=== PATIENT | male | born 1935 | race Hispanic/Latino ===

== ENCOUNTER 2017-12-26 06:00 | Observation (INO) | payer MEDICARE ==
[2017-12-23 12:16] VITALS: BP 113/55
[2017-12-23 12:55] LABS: BASOPHILS % (AUTO) 0.5 % (0.0-5.0); EOSINOPHILS % (AUTO) 0.8 % (0.0-8.0); HEMATOCRIT 30.9 % (42-54); LYMPHOCYTES % (AUTO) 12.4 % (21.0-51.0); MEAN CORPUSCULAR HEMOGLOBIN 34.1 pg (27.0-33.0); MEAN CORPUSCULAR HGB CONC 34.4 g/dL (32.0-36.0); MONOCYTES % (AUTO) 5.8 % (3.0-13.0); NEUTROPHILS % (AUTO) 80.5 % (40.0-77.0); PLATELET COUNT (AUTO) 228 K/uL (130-400); RED BLOOD CELL COUNT(AUTO) 3.12 MIL/uL (4.50-6.20); RED CELL DISTRIBUTION WIDTH 14.9 % (11.0-15.5); WHITE BLOOD COUNT (AUTO) 6.6 K/uL (4.8-10.8)
[2017-12-23 13:07] LABS: POTASSIUM 4.5 mmol/L (3.5-5.1)
[2017-12-23 13:08] LABS: INR 0.93 (0.85-1.15); PARTIAL THROMBOPLASTIN TIME 32.7 SEC (26.3-35.5); PROTHROMBIN TIME 9.8 SEC (9.6-11.6)
[2017-12-23 13:38] LABS: CREATININE 9.6 mg/dL (0.5-1.5)
[~2017-12-26] VITALS: Ht 182.9 cm; Wt 67.6 kg
[2017-12-26] VITALS (12 sets, daily range): BP systolic 91–105; BP diastolic 40–50
[~2017-12-26 06:00] MED LIST: ACET1TAB25 PO; ASPI-555 PO; FLUO-126 PO; SODIUM CHLORIDE 0.9% 500ML 500 ML IV SCH; TAMS-1 PO; VIT1TABL75 PO
[2017-12-26] MEDS ORDERED: SODIUM CHLORIDE 0.9% 1000ML 1,000 ML IV ONE (06:25)
[2017-12-26] MEDS ORDERED: NITROGLYCERIN 5 MG/ML 10 ML VIAL IV ONE (07:11)
[2017-12-26] MEDS ORDERED: LIDOCAINE HCL-MPF 2% 5ML VIAL ONE ×2 (07:11→09:07)
[2017-12-26] MEDS ORDERED: ISOVUE-300 100 ML VIAL IV ONE ×3 (07:11→08:53)
[2017-12-26] MEDS ORDERED: HEPARIN SODIUM 1000UNIT/ML 10ML VIAL ONE (07:11)
[2017-12-26] MEDS ORDERED: SODIUM BICARB 50MEQ 50ML VIAL ONE (07:40)
[2017-12-26] MEDS ORDERED: CLOPIDOGREL BISULFATE 300 MG TAB ONE (10:01)
[2017-12-26] MEDS ORDERED: ACETAMINOPHEN-CODEINE 300/30MG TAB PO PRN ×2 (10:15)
[2017-12-26] MEDS ORDERED: CLOPIDOGREL BISULFATE 300 MG TAB PO SCH (10:15)
[2017-12-26] MEDS: ACETAMINOPHEN-CODEINE 300/30MG TAB PO SCH ×4 (10:15→21:50)
[2017-12-26] MEDS ORDERED: DEXTROSE 50%-WATER 50 ML DISP.SYRIN IV PRN (10:15)
[2017-12-26] MEDS ORDERED: ONDANSETRON HCL 4 MG/2 ML VIAL IVP PRN (10:15)
[2017-12-26] MEDS ORDERED: TEMAZEPAM 30 MG CAP PO PRN (10:15)
[2017-12-26] MEDS ORDERED: CLOP75TA14 PO (10:26)
[2017-12-26] MEDS ORDERED: TYL3B PO (12:04)
[2017-12-26] MEDS: MIDODRINE HCL 5 MG TABLET PO SCH ×2 (16:15→21:41)
[2017-12-26] MEDS: INSULIN HUMULIN R 100 UNIT/ML 3ML SQ SCH (21:00)
[2017-12-26] MEDS: [UNRECOGNIZED DRUG - OTHER] PO SCH (21:00)
[2017-12-27] VITALS: BP 102/46
[2017-12-27 04:00] VITALS: BP 120/56
[2017-12-27 05:33] LABS: MEAN CORPUSCULAR HEMOGLOBIN 34.1 pg (27.0-33.0); MEAN CORPUSCULAR VOLUME 97.7 fL (79-99); NUCLEATED RED BLOOD CELLS 0.1 % (0.0-0.19); PLATELET COUNT (AUTO) 199 K/uL (130-400); RED BLOOD CELL COUNT(AUTO) 2.67 MIL/uL (4.50-6.20); RED CELL DISTRIBUTION WIDTH 14.9 % (11.0-15.5); WHITE BLOOD COUNT (AUTO) 4.8 K/uL (4.8-10.8)
[2017-12-27 05:40] LABS: BAND NEUTROPHILS % (MANUAL) 2 % (0-2); EOSINOPHILS % (MANUAL) 2 % (1-6); LYMPHOCYTES % (MANUAL) 22 % (22-44); MAN.DIFF COMMENT-IMPRESSION MANUAL DIFFERENTIAL; MONOCYTES % (MANUAL) 4 % (2-9); PLATELET MORPHOLOGY COMMENT ADEQUATE; SEGMENTED NEUTROPHILS % 70 % (40-70)
[2017-12-27 05:46] LABS: POTASSIUM 3.9 mmol/L (3.5-5.1)
[2017-12-27] MEDS: INSULIN HUMULIN R 100 UNIT/ML 3ML SQ SCH ×3 (06:52→16:30)
[2017-12-27 07:20] LABS: APPEARANCE,URINE CLEAR (CLEAR); BILIRUBIN,URINE NEGATIVE (NEGATIVE); COLOR,URINE YELLOW (YELLOW); GLUCOSE, URINE (UA) NEGATIVE (NEGATIVE); KETONES,URINE NEGATIVE (NEGATIVE); LEUKOCYTE ESTERASE ,URINE NEGATIVE (NEGATIVE); NITRATE,URINE NEGATIVE (NEGATIVE); OCCULT BLOOD,URINE SMALL (NEGATIVE); PROTEIN,URINE 30 (NEGATIVE); UROBILINOGEN,URINE 0.2 mg/dL (0.2-1.0)
[2017-12-27 07:25] LABS: BACTERIA,URINE Rare /HPF (None Seen); HYALINE CASTS, URINE 0-1 /LPF (0-1 /LPF); RBC,URINE 0-1 /HPF (0-1); SQUAMOUS EPITHELIAL CELL,UR Rare /HPF (0-2); WBC,URINE None Seen /HPF (0-1)
[2017-12-27 08:00] VITALS: BP 88/37
[2017-12-27] MEDS ORDERED: TAMSULOSIN HCL 0.4 MG CAP.ER.24H PO SCH (09:00)
[2017-12-27] MEDS ORDERED: ASPIRIN 81 MG EC TAB PO SCH (09:00)
[2017-12-27] MEDS ORDERED: FLUOXETINE HCL 20 MG CAPSULE PO SCH (09:00)
[2017-12-27] MEDS ORDERED: CLOPIDOGREL BISULFATE 75 MG TAB PO SCH (09:00)
[2017-12-27] MEDS: MIDODRINE HCL 5 MG TABLET PO SCH ×2 (09:11→13:36)
[2017-12-27] MEDS: [UNRECOGNIZED DRUG - OTHER] PO SCH (09:13)
[2017-12-27 09:29] VITALS: BP 94/42
[2017-12-27 12:00] VITALS: BP 90/38
[2017-12-27] MEDS ORDERED: HEPARIN SODIUM 5000UNIT/ML 1ML VIAL IJ PRN ×2 (13:00)
[2017-12-27] MEDS ORDERED: 0.9% SODIUM CHLORIDE 250 ML IV BAG IV PRN (13:00)
[2017-12-27] MEDS ORDERED: SODIUM CHLORIDE 0.9% 1000ML 1,000 ML IV PRN (13:00)
[2017-12-27] MEDS ORDERED: ALBUMIN (HUMAN) 25% 100 ML IV PRN (13:00)
[2017-12-27 16:00] VITALS: BP 95/44
[2017-12-27] MEDS ORDERED: LOPERAMIDE HCL 2 MG CAP PO SCH (18:30)
== END 2017-12-27 20:35 | disposition home or self-care (01) ==
LOC: DAH 06:00 → DAHIP 06:01 → 3BH 12:26
PROVIDERS: ADMIT Internal Medicine Nephrology; ATTEND Internal Medicine Nephrology
DX: I73.9 Peripheral vascular disease, unspecified (principal); I25.10 Atherosclerotic heart disease of native coronary artery without angina pectoris; I12.0 Hypertensive chronic kidney disease with stage 5 chronic kidney disease or end stage renal disease; N18.6 End stage renal disease; I95.89 Other hypotension; I45.2 Bifascicular block; N40.0 Benign prostatic hyperplasia without lower urinary tract symptoms; E11.22 Type 2 diabetes mellitus with diabetic chronic kidney disease; E11.51 Type 2 diabetes mellitus with diabetic peripheral angiopathy without gangrene; Z99.2 Dependence on renal dialysis; Z79.899 Other long term (current) drug therapy; Z79.82 Long term (current) use of aspirin; Z82.49 Family history of ischemic heart disease and other diseases of the circulatory system; Z83.3 Family history of diabetes mellitus
CPT/HCPCS: 36140; 36415; 36903; 71045; 75710; 80048; 80061; 81001; 82948; 85025; 85347; 85610; 85730; 90935; 93005; A4606; C1725; C1760; C1769; C1887; C1894; G0257; G0378; J1644; J3490; J7030; P9046; Q9967

== ENCOUNTER 2018-01-22 17:03 | Inpatient (IN) | payer MEDICARE ==
[~2018-01-22] VITALS: Ht 182.9 cm; Wt 63.4 kg
[~2018-01-22 17:03] MED LIST changes: -ACET1TAB25 PO; +CLOP75TA14 PO; -SODIUM CHLORIDE 0.9% 500ML 500 ML IV SCH; +TYL3B PO
[2018-01-22] MEDS ORDERED: KETOROLAC TROMETHAMINE 30MG/ML ONE (18:15)
[2018-01-22] MEDS ORDERED: SODIUM CHLORIDE 0.9% 1000ML 1,000 ML IV ONE (18:15)
[2018-01-22 18:23] LABS: BASOPHILS % (AUTO) 0.5 % (0.0-5.0); EOSINOPHILS % (AUTO) 2.6 % (0.0-8.0); HEMATOCRIT 30.3 % (42-54); LYMPHOCYTES % (AUTO) 15.3 % (21.0-51.0); MEAN CORPUSCULAR HEMOGLOBIN 33.5 pg (27.0-33.0); MEAN CORPUSCULAR HGB CONC 33.6 g/dL (32.0-36.0); MEAN CORPUSCULAR VOLUME 99.9 fL (79-99); MONOCYTES % (AUTO) 5.6 % (3.0-13.0); PLATELET COUNT (AUTO) 199 K/uL (130-400); RED BLOOD CELL COUNT(AUTO) 3.03 MIL/uL (4.50-6.20); WHITE BLOOD COUNT (AUTO) 6.1 K/uL (4.8-10.8)
[2018-01-22 18:40] LABS: CREATININE 5.8 mg/dL (0.5-1.5); POTASSIUM 4.6 mmol/L (3.5-5.1)
[2018-01-22] MEDS ORDERED: ZOSYN 3.375GM+NS 50ML 50 ML IV ONE (18:40)
[2018-01-23] MEDS ORDERED: ZOSYN 3.375GM+NS 50ML 50 ML IV ONE ×3 (00:25→15:14)
[2018-01-23] MEDS ORDERED: NITROGLYCERIN 0.4 MG SL TAB SL PRN (00:30)
[2018-01-23] MEDS ORDERED: LIDOCAINE HCL-MPF 1% 2ML VIAL IJ PRN (00:30)
[2018-01-23] MEDS ORDERED: POTASSIUM CHLORIDE 20MEQ/100ML 100 ML IV PRN (00:30)
[2018-01-23] MEDS ORDERED: POTASSIUM CHLORIDE 10% ELIXIR 20 MEQ/15 ML UDCUP PO PRN (00:30)
[2018-01-23] MEDS ORDERED: MAG HYDROX/AL HYDROX/SIMETH ES 30 ML SUSP UDCUP PO PRN (00:30)
[2018-01-23] MEDS ORDERED: ONDANSETRON HCL 4 MG/2 ML VIAL IVP PRN (00:30)
[2018-01-23] MEDS ORDERED: DIPHENHYDRAMINE HCL 25 MG CAPSULE PO PRN (00:30)
[2018-01-23] MEDS ORDERED: SODIUM CHLORIDE 0.9% 10 ML VIAL IVP SCH (00:30)
[2018-01-23] MEDS ORDERED: CLONIDINE HCL 0.1 MG TABLET PO PRN (00:30)
[2018-01-23] MEDS ORDERED: GUAIFENESIN SUGAR-FREE 100 MG/5 ML UDCUP PO PRN (00:30)
[2018-01-23] MEDS ORDERED: ZOLPIDEM TARTRATE 5 MG TAB PO PRN (00:30)
[2018-01-23] MEDS ORDERED: LACTULOSE 20 GM/30 ML UDCUP PO PRN (00:30)
[2018-01-23] MEDS ORDERED: GUAIFENESIN-DM 200/20 MG 10 ML PO PRN (00:30)
[2018-01-23] MEDS ORDERED: VANCOMYCIN PROTOCOL PER PHARMACY IV SCH (00:30)
[2018-01-23] MEDS ORDERED: DEXTROSE 50%-WATER 50 ML DISP.SYRIN IV PRN (00:30)
[2018-01-23] MEDS ORDERED: ACETAMINOPHEN 325 MG TAB PO PRN (00:30)
[2018-01-23] MEDS ORDERED: DiphenhydrAMINE HCL 50 MG/ML VIAL IVP PRN (00:30)
[2018-01-23] MEDS ORDERED: GLUCAGON 1MG KIT 1 MG ML IM PRN (00:30)
[2018-01-23] MEDS ORDERED: POTASSIUM CHLORIDE 20 MEQ ERTAB PO PRN (00:30)
[2018-01-23] MEDS ORDERED: VANCOMYCIN 1GM+NS 250ML 250 ML IV SCH (01:00)
[2018-01-23] MEDS: ZOSYN 3.375GM+NS 50ML 50 ML IV SCH ×2 (01:00→13:00)
[2018-01-23] MEDS ORDERED: ACETAMINOPHEN 325 MG TAB ONE ×3 (01:17→15:04)
[2018-01-23] MEDS ORDERED: ZOLPIDEM TARTRATE 5 MG TAB ONE (01:17)
[2018-01-23] MEDS: VANCOMYCIN 1GM+NS 250ML 250 ML IV SCH ×2 (07:30→09:00)
[2018-01-23] MEDS ORDERED: ONDANSETRON HCL MDV 20ML 2 MG/ML VIAL IVP PRN (07:30)
[2018-01-23] MEDS ORDERED: VANCOMYCIN 1GM+NS 250ML 250 ML IV ONE (07:46)
[2018-01-23] MEDS ORDERED: ASPIRIN 81MG TAB.CHEW ONE (15:04)
[2018-01-23 19:10] VITALS: BP 129/59
[2018-01-23] MEDS ORDERED: SEVE800T7 PO (19:57)
[2018-01-24] VITALS (12 sets, daily range): BP systolic 98–122; BP diastolic 44–56
[2018-01-24] MEDS: ZOSYN 3.375GM+NS 50ML 50 ML IV SCH ×2 (02:15→13:55)
[2018-01-24] MEDS: ACETAMINOPHEN 325 MG TAB PO PRN ×2 (02:49→09:00)
[2018-01-24 04:06] LABS: INR 0.99 (0.85-1.15); PARTIAL THROMBOPLASTIN TIME 36.6 SEC (26.3-35.5); PROTHROMBIN TIME 10.4 SEC (9.6-11.6)
[2018-01-24] MEDS ORDERED: ASPIRIN 81 MG EC TAB PO SCH (09:00)
[2018-01-24] MEDS ORDERED: HYDROMORPHONE 1 MG/1 ML AMP IVP SCH (09:15)
[2018-01-24] MEDS ORDERED: LIDOCAINE HCL 1% 20 ML VIAL ONE (10:41)
[2018-01-24] MEDS ORDERED: SODIUM BICARB 50MEQ 50ML VIAL ONE (10:41)
[2018-01-24] MEDS ORDERED: HEPARIN SODIUM 1000UNIT/ML 10ML VIAL ONE (10:41)
[2018-01-24] MEDS ORDERED: NITROGLYCERIN 5 MG/ML 10 ML VIAL IV ONE (10:41)
[2018-01-24] MEDS ORDERED: ISOVUE-300 100 ML VIAL IV ONE (10:43)
[2018-01-24] MEDS ORDERED: MEPERIDINE-PF 25 MG/ML SYG ONE ×2 (11:22→11:56)
[2018-01-24] MEDS ORDERED: MIDAZOLAM HCL 1 MG/ML 2ML VIAL ONE ×2 (11:22→11:57)
[2018-01-24] MEDS ORDERED: CLOPIDOGREL BISULFATE 300 MG TAB ONE (12:44)
[2018-01-24] MEDS ORDERED: CILO100T PO (12:47)
[2018-01-24] MEDS ORDERED: ASPIRIN 81MG TAB.CHEW ONE (13:01)
[2018-01-24] MEDS: ACETAMINOPHEN-CODEINE 300/30MG TAB PO PRN ×2 (16:25→22:46)
[2018-01-24] MEDS ORDERED: SEVELAMER HCL 800 MG TABLET PO SCH (17:00)
[2018-01-24] MEDS: CILOSTAZOL 100 MG TAB PO SCH (20:27)
[2018-01-24] MEDS ORDERED: FOLIC ACID/VITAMIN B COMP W-C 1 MG CAPSULE PO SCH (21:00)
[2018-01-25] MEDS: TRAMADOL HCL 50 MG TABLET PO PRN ×3 (01:19→18:31)
[2018-01-25] MEDS: ZOSYN 3.375GM+NS 50ML 50 ML IV SCH (01:19)
[2018-01-25 04:00] VITALS: BP 110/53
[2018-01-25] MEDS: ACETAMINOPHEN-CODEINE 300/30MG TAB PO PRN (04:39)
[2018-01-25] MEDS ORDERED: VANCOMYCIN 1GM+NS 250ML 250 ML IV NR (06:46)
[2018-01-25 07:30] VITALS: BP 95/44
[2018-01-25] MEDS ORDERED: HONEY 1 APPL/ML TUBE TP SCH (09:00)
[2018-01-25] MEDS ORDERED: FLUOXETINE HCL 20 MG CAPSULE PO SCH (09:00)
[2018-01-25] MEDS ORDERED: CLOPIDOGREL BISULFATE 75 MG TAB PO SCH (09:00)
[2018-01-25] MEDS ORDERED: TAMSULOSIN HCL 0.4 MG CAP.ER.24H PO SCH (09:00)
[2018-01-25] MEDS: MIDODRINE HCL 5 MG TABLET PO SCH ×2 (10:26→20:36)
[2018-01-25 11:00] VITALS: BP 116/47
[2018-01-25 16:00] VITALS: BP 116/46
[2018-01-25] MEDS ORDERED: SODIUM CHLORIDE 0.9% 1000ML 1,000 ML IV PRN (19:15)
[2018-01-25] MEDS ORDERED: 0.9% SODIUM CHLORIDE 250 ML IV BAG IV PRN (19:15)
[2018-01-25] MEDS ORDERED: ALBUMIN (HUMAN) 25% 100 ML IV PRN (19:15)
[2018-01-25 19:28] VITALS: BP 112/49
[2018-01-25] MEDS ORDERED: TRAMADOL HCL 50 MG TABLET PO PRN (20:30)
[2018-01-25] MEDS: CILOSTAZOL 100 MG TAB PO SCH (20:36)
== END 2018-01-25 22:00 | disposition home health service (06) | DRG 252 ==
LOC: EDH 17:03 → OBSVTOIN 22:38 → EDHIP 22:38 → 3BH 01-23 19:19
PROVIDERS: ADMIT Family Medicine; ATTEND Family Medicine
PROC: 5A1D70Z Performance of Urinary Filtration, Intermittent, Less than 6 Hours Per Day (ICD-10-PCS; 2018-01-23)
PROC: 047K34Z Dilation of Right Femoral Artery with Drug-eluting Intraluminal Device, Percutaneous Approach (ICD-10-PCS; principal; 2018-01-24)
PROC: 047M3ZZ Dilation of Right Popliteal Artery, Percutaneous Approach (ICD-10-PCS; 2018-01-24)
PROC: 047T3ZZ Dilation of Right Peroneal Artery, Percutaneous Approach (ICD-10-PCS; 2018-01-24)
PROC: B4101ZZ Fluoroscopy of Abdominal Aorta using Low Osmolar Contrast (ICD-10-PCS; 2018-01-24)
PROC: B4141ZZ Fluoroscopy of Superior Mesenteric Artery using Low Osmolar Contrast (ICD-10-PCS; 2018-01-24)
PROC: B41B1ZZ Fluoroscopy of Other Intra-Abdominal Arteries using Low Osmolar Contrast (ICD-10-PCS; 2018-01-24)
PROC: 04HY32Z Insertion of Monitoring Device into Lower Artery, Percutaneous Approach (ICD-10-PCS; 2018-01-24)
PROC: 5A1D70Z Performance of Urinary Filtration, Intermittent, Less than 6 Hours Per Day (ICD-10-PCS; 2018-01-25)
DX: I70.201 Unspecified atherosclerosis of native arteries of extremities, right leg (principal); N18.6 End stage renal disease; E11.22 Type 2 diabetes mellitus with diabetic chronic kidney disease; E11.51 Type 2 diabetes mellitus with diabetic peripheral angiopathy without gangrene; E11.621 Type 2 diabetes mellitus with foot ulcer; L03.115 Cellulitis of right lower limb; I12.0 Hypertensive chronic kidney disease with stage 5 chronic kidney disease or end stage renal disease; E78.5 Hyperlipidemia, unspecified; I25.10 Atherosclerotic heart disease of native coronary artery without angina pectoris; Z99.2 Dependence on renal dialysis; F32.9 Major depressive disorder, single episode, unspecified; I99.8 Other disorder of circulatory system; L97.519 Non-pressure chronic ulcer of other part of right foot with unspecified severity; N40.0 Benign prostatic hyperplasia without lower urinary tract symptoms; I25.2 Old myocardial infarction; Z79.82 Long term (current) use of aspirin; Z98.61 Coronary angioplasty status; Z93.3 Colostomy status; Z90.49 Acquired absence of other specified parts of digestive tract; Z83.3 Family history of diabetes mellitus; Z82.49 Family history of ischemic heart disease and other diseases of the circulatory system
CPT/HCPCS: 36245; 36415; 37226; 37228; 73630; 73718; 75710; 75726; 80048; 80202; 82948; 83605; 85025; 85347; 85610; 85730; 87040; 90935; 99152; 99153; C1725; C1769; C1887; C1893; C1894; J1170; J1644; J1885; J2175; J2250; J2543; J3370; J3490; J7030; Q9967

== ENCOUNTER → 2018-02-01 | Outpatient (CLI) | payer MEDICARE ==
[~2018-02-01] MED LIST changes: +CILO100T PO; +SANTYL AUTOSUB TO MEDIHONEY FOR INPT TP ONE; +SEVE800T7 PO
[2018-02-01 14:50] VITALS: BP 95/52
== END | disposition home or self-care (01) ==
LOC: WHH 10:00
PROVIDERS: ATTEND Podiatrist Foot & Ankle Surgery
DX: I70.235 Atherosclerosis of native arteries of right leg with ulceration of other part of foot (principal); E11.621 Type 2 diabetes mellitus with foot ulcer; L97.511 Non-pressure chronic ulcer of other part of right foot limited to breakdown of skin; E11.22 Type 2 diabetes mellitus with diabetic chronic kidney disease; I12.0 Hypertensive chronic kidney disease with stage 5 chronic kidney disease or end stage renal disease; N18.6 End stage renal disease; E78.5 Hyperlipidemia, unspecified; F32.9 Major depressive disorder, single episode, unspecified; I25.2 Old myocardial infarction; E11.51 Type 2 diabetes mellitus with diabetic peripheral angiopathy without gangrene; Z90.49 Acquired absence of other specified parts of digestive tract; Z99.2 Dependence on renal dialysis
CPT/HCPCS: 11042; A4450; G0463

== ENCOUNTER → 2018-02-17 | Outpatient (CLI) | payer MEDICARE ==
[~2018-02-17] MED LIST changes: -SANTYL AUTOSUB TO MEDIHONEY FOR INPT TP ONE
== END | disposition home or self-care (01) ==
LOC: RAH 14:13
PROVIDERS: ATTEND Internal Medicine Cardiovascular Disease
DX: I82.4Z3 Acute embolism and thrombosis of unspecified deep veins of distal lower extremity, bilateral (principal); R60.0 Localized edema
CPT/HCPCS: 93970